=== PATIENT | female | born 1970 | race Caucasian/White ===

== ENCOUNTER 2024-03-09 00:20 | Emergency (ER) | payer OTHER ==
[2024-03-09 00:29] VITALS: BP 106/42; PULSE 78; RESP 16; TEMP 98.1; BMI 29.2
== END 2024-03-09 01:20 | disposition home or self-care (01) ==
LOC: FER 00:20
DX: R51.9 Headache, unspecified (principal); R11.0 Nausea; R40.0 Somnolence; T43.595A Adverse effect of other antipsychotics and neuroleptics, initial encounter
CPT/HCPCS: 99282-25